=== PATIENT | female | born 1965 | race Caucasian/White ===

== ENCOUNTER 2016-12-03 05:39 | Day surgery (SDC) | payer OTHER ==
[~2016-12-03 05:39] MED LIST: BIOTIN10 M1 PO; CALCIUM 600 +1 EA12 PO; CRANBERRY400 M3 PO; FEMARA2.5 M1 PO; MEDS; METAMUCIL660 GM PO; METHYLDOPA500 M1 PO; POTASSIUM99 M5 PO; PROBIOTIC1 EAC9 PO; TAPAZOLE5 M1 PO; TENORMIN25 M1 PO; THERA M PLUS TA1 TAB PO; TYLENOL325 M2 PO; VITAMIN C500 M3 PO; VITAMIN D31000 UNI3 PO; XARELTO20 M1 PO
[2016-12-03] MEDS ORDERED: LOVENOX SC (06:27)
[2016-12-03 07:17] LABS: PROTHROMBIN TIME 11.8 SECONDS (9.0-13.6)
== END 2016-12-03 15:35 ==
LOC: SRG 05:39 → SHSB 05:40 → ORW 07:29 → PACU 10:08 → SHSB 11:45
PROVIDERS: Anesthesiology
PROC: 0HWU0JZ Revision of Synthetic Substitute in Left Breast, Open Approach (ICD-10-PCS; principal; 2016-12-03)
PROC: 0HWT0JZ Revision of Synthetic Substitute in Right Breast, Open Approach (ICD-10-PCS; 2016-12-03)
PROC: 0XQ5XZZ Repair Left Axilla, External Approach (ICD-10-PCS; 2016-12-03)
PROC: 0XQ4XZZ Repair Right Axilla, External Approach (ICD-10-PCS; 2016-12-03)
PROC: 0JB60ZZ Excision of Chest Subcutaneous Tissue and Fascia, Open Approach (ICD-10-PCS; 2016-12-03)
DX: T85.898A Other specified complication of other internal prosthetic devices, implants and grafts, initial encounter (principal); L98.8 Other specified disorders of the skin and subcutaneous tissue; I10 Essential (primary) hypertension; M19.90 Unspecified osteoarthritis, unspecified site; M47.814 Spondylosis without myelopathy or radiculopathy, thoracic region; E07.9 Disorder of thyroid, unspecified; E66.9 Obesity, unspecified; R12 Heartburn; Z79.01 Long term (current) use of anticoagulants; Z79.899 Other long term (current) drug therapy; Z87.891 Personal history of nicotine dependence; Z85.3 Personal history of malignant neoplasm of breast; Z86.718 Personal history of other venous thrombosis and embolism; Z90.13 Acquired absence of bilateral breasts and nipples; Z98.890 Other specified postprocedural states
CPT/HCPCS: J0690; J1170; J3010